=== PATIENT | male | born 1965 | race African-American/Black ===

== ENCOUNTER 2023-03-26 18:01 | Inpatient (IN) | payer OTHER, MEDICAID ==
[~2023-03-26] VITALS: Ht 175.3 cm; Wt 79.4 kg
[2023-03-26] MEDS ORDERED: TETANUS, DIPHTHERIA, PERTUSSIS VAC/PF 0.5ML (>10YR OLD) IM ONE ×2 (18:45→20:30)
[2023-03-26 19:43] LABS: BASOPHILS % 0.7 % (0.0-2.0); HEMATOCRIT. 37.2 % (42.0-52.0); HEMOGLOBIN. 12.6 g/dL (14.0-18.0); LYMPHOCYTES % 13.4 % (20.0-50.0); MEAN CORPUSCULAR HEMOGLOBIN 31.7 pg (28.0-32.0); MEAN CORPUSCULAR VOLUME 93.3 fL (80.0-94.0); MEAN PLATELET VOLUME 8.5 fl (7.4-10.4); MONOCYTES % 11.5 % (2.0-8.0); NEUTROPHILS % 74.4 % (40.0-76.0); PLATELET 225 x1000/uL (130-400); RED BLOOD CELL COUNT 3.98 mill/uL (4.7-6.1); RED CELL DISTRIBUTION WIDTH 13.1 % (11.6-14.6); WHITE BLOOD COUNT 7.4 x1000/uL (4.5-11.0)
[2023-03-26 19:51] LABS: CHLORIDE 107 mEq/L (98-107); INDEX HEMOLYSI 1 (1-3); INDEX ICTERIC 1 (1-4); INDEX LIPEMIC 1 (1-3); POTASSIUM 3.5 mEq/L (3.5-5.1); SODIUM 140 mEq/L (136-145)
[2023-03-26 20:02] LABS: ALANINE AMINOTRANSFERASE 23 IU/L (13-61); ALBUMIN 3.7 g/dL (3.4-5.0); ASPARTATE AMINOTRANSFERASE 24 IU/L (15-37); BILIRUBIN TOTAL 0.9 mg/dL (0.1-1.0); CALCIUM 8.6 mg/dL (8.5-10.1); CARBON DIOXIDE 30 mEq/L (21-32); CREATININE 0.9 mg/dL (0.6-1.3); GLUCOSE 115 mg/dL (70-105); NT PRO B-TYPE NATRIURETIC PEP 68 pg/mL (5-125); PROTEIN TOTAL 7.3 g/dL (6.0-8.3); TROPONIN I HIGH SENSITIVITY 29 ng/L (<78); UREA NITROGEN BLOOD 18 mg/dL (7-21)
[2023-03-27 01:20] VITALS: BP 135/84; PULSE 71; RESP 20; TEMP 99.1
[2023-03-27] MEDS ORDERED: *PATIENT'S OWN MEDICATION STORAGE XX SCH (02:30)
[2023-03-27] MEDS ORDERED: PHEN100C4 PO (04:26)
[2023-03-27] MEDS ORDERED: HYDR-4009 MT (04:26)
[2023-03-27] MEDS ORDERED: MELO-104 PO (04:28)
[2023-03-27] MEDS ORDERED: BRIN8DRO EACHEYE (04:28)
[2023-03-27] MEDS ORDERED: HYDROCODONE/ACETAMINOPHEN 5/325MG TABLET PO PRN (05:00)
[2023-03-27] MEDS ORDERED: NALOXONE HCL 0.4MG/ML VIAL IV PRN (05:15)
[2023-03-27 08:00] VITALS: BP 144/84; PULSE 67; RESP 18; TEMP 98.8
[2023-03-27 08:06] LABS: BASOPHILS % 0.3 % (0.0-2.0); HEMATOCRIT. 38.6 % (42.0-52.0); LYMPHOCYTES % 16.3 % (20.0-50.0); MEAN CORPUSCULAR HEMOGLOBIN 31.2 pg (28.0-32.0); MEAN CORPUSCULAR HGB CONC 33.7 g/dL (31.0-37.0); MEAN CORPUSCULAR VOLUME 92.6 fL (80.0-94.0); MONOCYTES % 10.8 % (2.0-8.0); NEUTROPHILS % 72.6 % (40.0-76.0); PLATELET 238 x1000/uL (130-400); RED BLOOD CELL COUNT 4.17 mill/uL (4.7-6.1); RED CELL DISTRIBUTION WIDTH 12.9 % (11.6-14.6)
[2023-03-27] MEDS ORDERED: LEVETIRACETAM 500MG TABLET PO SCH (09:00)
[2023-03-27] MEDS ORDERED: MELOXICAM 7.5MG TABLET PO SCH (09:00)
[2023-03-27] MEDS: BRIMONIDINE 0.2% OPHTH DROPS 5ML BOTHEYE SCH ×2 (09:00→17:37)
[2023-03-27 10:31] LABS: CALCIUM 9.4 mg/dL (8.5-10.1); CARBON DIOXIDE 32 mEq/L (21-32); INDEX HEMOLYSI 1 (1-3); INDEX ICTERIC 1 (1-4); INDEX LIPEMIC 1 (1-3)
[2023-03-27 10:33] LABS: CHLORIDE 103 mEq/L (98-107); GLUCOSE 93 mg/dL (70-105); POTASSIUM 3.6 mEq/L (3.5-5.1); SODIUM 139 mEq/L (136-145); UREA NITROGEN BLOOD 18 mg/dL (7-21)
[2023-03-27 10:37] LABS: CREATININE 0.8 mg/dL (0.6-1.3)
[2023-03-27 12:00] VITALS: BP 117/71; PULSE 66; RESP 18; TEMP 97.9
[2023-03-27 16:00] VITALS: BP 106/63; PULSE 62; RESP 18; TEMP 97.9
[2023-03-27 16:55] LABS: HEPATITIS B SURFACE ANTIGEN NEGATIVE
[2023-03-27 19:45] VITALS: BP 96/63; PULSE 64; TEMP 98; O2SAT 99
[2023-03-27 20:00] VITALS: BP 96/63; PULSE 64; RESP 18; TEMP 98
[2023-03-28 20:18] LABS: HEPATITIS C VIR.AB 0.09 INDEXVAL (0.00-0.80)
== END 2023-03-27 20:30 | disposition home or self-care (01) | DRG 74 ==
LOC: ER 19:31 → 8WST 23:43
PROVIDERS: ADMIT Internal Medicine; ATTEND Internal Medicine
DX: G90.8 Other disorders of autonomic nervous system (principal); G40.909 Epilepsy, unspecified, not intractable, without status epilepticus
CPT/HCPCS: 36415; 71045; 80048; 80053; 83880; 84484; 85025; 86803; 87340; 90715; 93005; 99291

== ENCOUNTER 2023-07-25 20:51 | Inpatient (IN) | payer OTHER, MEDICAID ==
[~2023-07-25] VITALS: Ht 175.3 cm; Wt 83.9 kg
[~2023-07-25 20:51] MED LIST: BRIN8DRO EACHEYE; HYDR-4009 MT; MELO-104 PO; PHEN100C4 PO
[2023-07-25] MEDS ORDERED: LORAZEPAM 2MG/ML INJ ONE (21:26)
[2023-07-25] MEDS: LEVETIRACETAM 500MG PREMIX 100 ML IV ONE (21:41)
[2023-07-25] MEDS: LORAZEPAM 2MG/ML INJ IV ONE (21:44)
[2023-07-25] MEDS: SODIUM CHLORIDE 0.9% 1,000 ML IV ONE (21:47)
[2023-07-25 22:59] LABS: BASOPHILS % 0.4 % (0.0-2.0); EOSINOPHILS % 0.2 % (0.0-5.0); HEMATOCRIT. 34.5 % (42.0-52.0); HEMOGLOBIN. 11.6 g/dL (14.0-18.0); LYMPHOCYTES % 14.1 % (20.0-50.0); MEAN CORPUSCULAR HEMOGLOBIN 31.5 pg (28.0-32.0); MEAN CORPUSCULAR HGB CONC 33.5 g/dL (31.0-37.0); MEAN CORPUSCULAR VOLUME 93.8 fL (80.0-94.0); MEAN PLATELET VOLUME 8.8 fl (7.4-10.4); MONOCYTES % 11.4 % (2.0-8.0); NEUTROPHILS % 73.9 % (40.0-76.0); PLATELET 198 x1000/uL (130-400); RED BLOOD CELL COUNT 3.68 mill/uL (4.7-6.1); RED CELL DISTRIBUTION WIDTH 13.3 % (11.6-14.6); WHITE BLOOD COUNT 7.4 x1000/uL (4.5-11.0)
[2023-07-25 23:12] LABS: ALANINE AMINOTRANSFERASE 31 IU/L (10-49); ALBUMIN 4.2 g/dL (3.2-4.8); ASPARTATE AMINOTRANSFERASE 25 IU/L (<34); BILIRUBIN TOTAL 0.3 mg/dL (0.1-1.0); CALCIUM 8.7 mg/dL (8.7-10.4); CARBON DIOXIDE 29 mEq/L (21-32); CHLORIDE 109 mEq/L (98-107); GLUCOSE 116 mg/dL (70-105); PHENYTOIN 7.2 ug/mL (10-20); POTASSIUM 3.5 mEq/L (3.5-5.1); PROTEIN TOTAL 7.3 g/dL (6.0-8.3); SODIUM 144 mEq/L (136-145); UREA NITROGEN BLOOD 24 mg/dL (9-23)
[2023-07-26] MEDS ORDERED: IPRATROPIUM/ALBUTEROL 0.5-3(2.5)MG/3ML NEB NEB PRN
[2023-07-26] MEDS ORDERED: GUAIFENESIN 200MG/10ML SUGAR FREE UDC PO PRN
[2023-07-26] MEDS ORDERED: DIPHENHYDRAMINE 50MG/ML VIAL IV PRN
[2023-07-26] MEDS ORDERED: NA PHOS,M-B/NA PHOS,DI-BA ENEMA 118ML PR PRN
[2023-07-26] MEDS ORDERED: HYDROCODONE/ACETAMINOPHEN 5/325MG TABLET PO PRN
[2023-07-26] MEDS ORDERED: ONDANSETRON HCL 4MG/2ML INJ IV PRN
[2023-07-26] MEDS ORDERED: MAGNESIUM/ALUMINUM HYDROXIDE/SIMETHICONE 30ML UDC PO PRN
[2023-07-26] MEDS ORDERED: ACETAMINOPHEN 325MG TABLET PO PRN
[2023-07-26] MEDS ORDERED: LORAZEPAM 2MG/ML INJ IV PRN
[2023-07-26] MEDS ORDERED: DOCUSATE SODIUM 100MG CAPSULE PO PRN
[2023-07-26] MEDS: CLONIDINE 0.1MG TABLET PO PRN (02:01)
[2023-07-26 04:55] LABS: BASOPHILS % 1.1 % (0.0-2.0); EOSINOPHILS % 0.2 % (0.0-5.0); HEMATOCRIT. 35.9 % (42.0-52.0); HEMOGLOBIN. 11.7 g/dL (14.0-18.0); LYMPHOCYTES % 26.6 % (20.0-50.0); MEAN CORPUSCULAR HEMOGLOBIN 30.4 pg (28.0-32.0); MEAN CORPUSCULAR HGB CONC 32.5 g/dL (31.0-37.0); MEAN CORPUSCULAR VOLUME 93.4 fL (80.0-94.0); MEAN PLATELET VOLUME 8.9 fl (7.4-10.4); MONOCYTES % 14.1 % (2.0-8.0); PLATELET 182 x1000/uL (130-400); RED BLOOD CELL COUNT 3.84 mill/uL (4.7-6.1); RED CELL DISTRIBUTION WIDTH 13.6 % (11.6-14.6); WHITE BLOOD COUNT 7.9 x1000/uL (4.5-11.0)
[2023-07-26 05:05] LABS: ALANINE AMINOTRANSFERASE 27 IU/L (10-49); ASPARTATE AMINOTRANSFERASE 22 IU/L (<34); BILIRUBIN TOTAL 0.4 mg/dL (0.1-1.0); CALCIUM 8.9 mg/dL (8.7-10.4); CARBON DIOXIDE 28 mEq/L (21-32); CHLORIDE 109 mEq/L (98-107); CREATININE 0.9 mg/dL (0.6-1.3); GLUCOSE 83 mg/dL (70-105); POTASSIUM 3.7 mEq/L (3.5-5.1); PROTEIN TOTAL 6.9 g/dL (6.0-8.3); SODIUM 143 mEq/L (136-145); TROPONIN I HIGH SENSITIVITY 13 ng/L (3.0-53); UREA NITROGEN BLOOD 18 mg/dL (9-23)
[2023-07-26 09:30] VITALS: BP 140/84; PULSE 49; RESP 20; TEMP 97.6
[2023-07-26] MEDS ORDERED: DEXTROSE 50% WATER 50ML SYRINGE IV PRN (10:00)
[2023-07-26] MEDS ORDERED: HYDRALAZINE 20MG/ML VIAL IV PRN (10:00)
[2023-07-26] MEDS: FAMOTIDINE 20MG/2ML VIAL IV SCH (10:00)
[2023-07-26] MEDS: BLOOD SUGAR DIAGNOSTIC STRIP TEST SCH (11:33)
[2023-07-26] MEDS: INSULIN LISPRO 100 UNITS/ML SUBCUT SCH (11:33)
[2023-07-26 12:00] VITALS: BP 133/74; PULSE 54; RESP 20; TEMP 97.3
[2023-07-26 15:59] LABS: D-DIMER 0.45 mg/L FEU (<0.50); PARTIAL THROMBOPLASTIN TIME 26.5 sec (23.4-31.0)
[2023-07-26 16:00] VITALS: BP 141/82; PULSE 53; RESP 18; TEMP 97.8
[2023-07-26 16:43] LABS: AMMONIA < 10 uMol/L (<32)
[2023-07-26 16:46] LABS: FERRITIN 62 ng/mL (22-322); FOLIC ACID (FOLATE) SERUM 15.53 ng/mL (>5.38); VITAMIN B12 SERUM 592 pg/mL (211-911)
[2023-07-26] MEDS ORDERED: HYDROCODONE/ACETAMINOPHEN 10/325MG TABLET PO PRN (17:00)
[2023-07-26] MEDS: PHENYTOIN SODIUM EXTENDED 100MG CAPSULE PO SCH (17:00)
[2023-07-26 18:55] LABS: IRON 78 ug/dL (65-175); PHOSPHORUS 2.9 mg/dL (2.5-4.9); TOTAL IRON BINDING CAPACITY 126 ug/dl (250-425); URIC ACID 4.6 mg/dL (3.7-9.2)
[2023-07-26 19:10] LABS: CREATINE KINASE MB FRACTION 4.1 ng/mL (0.5-3.6); THYROID STIMULATING HORMONE 0.73 uIU/mL (0.55-4.78)
[2023-07-26 19:30] LABS: T4 FREE 0.9 ng/dL (0.89-1.76)
[2023-07-26 20:00] VITALS: BP 136/69; PULSE 55; RESP 18; TEMP 97.6
[2023-07-27] VITALS: BP 144/65; PULSE 49; RESP 17; TEMP 97.2
[2023-07-27 04:00] VITALS: BP 140/62; PULSE 54; RESP 18; TEMP 97
[2023-07-27 05:53] LABS: BASOPHILS % 0.4 % (0.0-2.0); HEMATOCRIT. 35.8 % (42.0-52.0); HEMOGLOBIN. 12.1 g/dL (14.0-18.0); LYMPHOCYTES % 38.9 % (20.0-50.0); MEAN CORPUSCULAR HEMOGLOBIN 31.1 pg (28.0-32.0); MEAN CORPUSCULAR HGB CONC 33.9 g/dL (31.0-37.0); MEAN CORPUSCULAR VOLUME 91.8 fL (80.0-94.0); MEAN PLATELET VOLUME 9.7 fl (7.4-10.4); MONOCYTES % 12.5 % (2.0-8.0); NEUTROPHILS % 47.2 % (40.0-76.0); PLATELET 187 x1000/uL (130-400); RED CELL DISTRIBUTION WIDTH 13.1 % (11.6-14.6); WHITE BLOOD COUNT 4.6 x1000/uL (4.5-11.0)
[2023-07-27 06:04] LABS: CALCIUM 9.1 mg/dL (8.7-10.4); CARBON DIOXIDE 30 mEq/L (21-32); CHLORIDE 107 mEq/L (98-107); CREATININE 0.8 mg/dL (0.6-1.3); GLUCOSE 86 mg/dL (70-105); POTASSIUM 3.9 mEq/L (3.5-5.1); SODIUM 142 mEq/L (136-145); UREA NITROGEN BLOOD 17 mg/dL (9-23)
[2023-07-27 08:00] VITALS: BP 122/68; PULSE 56; RESP 17; TEMP 98
[2023-07-27] MEDS: MELOXICAM 7.5MG TABLET PO SCH (09:15)
[2023-07-27 12:00] VITALS: BP 139/65; PULSE 56; RESP 17; TEMP 97
[2023-07-27 13:09] VITALS: BP 140/70; PULSE 58; RESP 17; TEMP 97.7
[2023-07-27 16:00] VITALS: BP 125/80; PULSE 55; RESP 18; TEMP 98
[2023-07-28 04:00] VITALS: BP 129/58; PULSE 56; RESP 18; TEMP 98.2
[2023-07-28 08:00] VITALS: BP 126/86; PULSE 64; TEMP 98
[2023-07-28 12:00] VITALS: BP 117/73; PULSE 67; RESP 22; TEMP 98
[2023-07-28 14:08] VITALS: BP 150/84; PULSE 65; TEMP 97.8; O2SAT 98
[2023-07-29] MEDS ORDERED: LEVOTHYROXINE SODIUM 50MCG TABLET PO SCH (07:10)
== END 2023-07-28 16:45 | disposition home or self-care (01) | DRG 74 ==
LOC: ER 20:51 → 8WST 07-26 09:31
PROVIDERS: ADMIT Internal Medicine; ATTEND Internal Medicine
PROC: 4A02XM4 Measurement of Cardiac Total Activity, External Approach (ICD-10-PCS; principal; 2023-07-28)
DX: G90.9 Disorder of the autonomic nervous system, unspecified (principal); G96.08 Other cranial cerebrospinal fluid leak; E03.9 Hypothyroidism, unspecified; G40.909 Epilepsy, unspecified, not intractable, without status epilepticus; D64.9 Anemia, unspecified; I49.1 Atrial premature depolarization; I44.0 Atrioventricular block, first degree
CPT/HCPCS: 36415; 71045; 80048; 80053; 80185; 82140; 82550; 82553; 82607; 82728; 82746; 82962; 83036; 83540; 83550; 83605; 83735; 84100; 84439; 84443; 84484; 84550; 85025; 85379; 93005; 93017; 93306; 93880; 99285; J1953; J2060; J3490; J7030

== ENCOUNTER 2024-01-03 11:02 | Emergency (ER) | payer MEDICARE, MEDICAID ==
[~2024-01-03] VITALS: Ht 182.9 cm; Wt 68.0 kg
[~2024-01-03 11:02] MED LIST changes: -BRIN8DRO EACHEYE; -HYDR-4009 MT
[2024-01-03 11:11] VITALS: O2SAT 100
[2024-01-03 11:52] LABS: BASOPHILS % 0.4 % (0.0-2.0); HEMATOCRIT. 37.9 % (42.0-52.0); HEMOGLOBIN. 12.7 g/dL (14.0-18.0); LYMPHOCYTES % 9.1 % (20.0-50.0); MEAN CORPUSCULAR HEMOGLOBIN 31.5 pg (28.0-32.0); MEAN CORPUSCULAR HGB CONC 33.4 g/dL (31.0-37.0); MEAN CORPUSCULAR VOLUME 94.3 fL (80.0-94.0); MEAN PLATELET VOLUME 8.8 fl (7.4-10.4); MONOCYTES % 9.4 % (2.0-8.0); NEUTROPHILS % 81.1 % (40.0-76.0); PLATELET 209 x1000/uL (130-400); RED BLOOD CELL COUNT 4.02 mill/uL (4.7-6.1); RED CELL DISTRIBUTION WIDTH 13.8 % (11.6-14.6); WHITE BLOOD COUNT 10.5 x1000/uL (4.5-11.0)
[2024-01-03 11:56] LABS: CALCIUM 9.9 mg/dL (8.7-10.4); CARBON DIOXIDE 28 mEq/L (21-32); CHLORIDE 107 mEq/L (98-107); POTASSIUM 3.4 mEq/L (3.5-5.1); SODIUM 141 mEq/L (136-145)
[2024-01-03 12:01] LABS: CREATININE 0.9 mg/dL (0.6-1.3); GLUCOSE 111 mg/dL (70-105); UREA NITROGEN BLOOD 22 mg/dL (9-23)
[2024-01-03 12:03] LABS: ALANINE AMINOTRANSFERASE 20 IU/L (10-49); ALBUMIN 4.8 g/dL (3.2-4.8); ASPARTATE AMINOTRANSFERASE 24 IU/L (<34)
[2024-01-03 12:04] LABS: BILIRUBIN TOTAL 0.7 mg/dL (0.1-1.0); PROTEIN TOTAL 7.8 g/dL (6.0-8.3)
[2024-01-03] MEDS: PHENYTOIN SODIUM EXTENDED 100MG CAPSULE PO ONE (12:20)
[2024-01-03 12:32] VITALS: BP 180/96; PULSE 79; RESP 15; TEMP 98.3
== END 2024-01-03 13:18 | disposition home or self-care (01) ==
LOC: ER 11:02
DX: G40.909 Epilepsy, unspecified, not intractable, without status epilepticus (principal)
CPT/HCPCS: 36415; 80053; 85025; 99283

== ENCOUNTER 2024-02-16 19:09 | Emergency (ER) | payer OTHER ==
[~2024-02-16] VITALS: Ht 177.8 cm; Wt 81.0 kg
[2024-02-16 19:19] VITALS: O2SAT 98
[2024-02-16 19:45] VITALS: TEMP 37.11408
[2024-02-16] MEDS ORDERED: PHEN100C4 MT (19:46)
[2024-02-16 20:00] VITALS: BP 143/75; PULSE 67; RESP 15; O2SAT 96
== END 2024-02-16 20:30 | disposition home or self-care (01) ==
LOC: ER 19:09
DX: R69 Illness, unspecified (principal)
CPT/HCPCS: 99283